=== PATIENT | female | born 1945 | race Caucasian/White ===

== ENCOUNTER 2018-01-10 12:34 | Observation (INO) | payer MEDICARE ==
--- NOTE | 2018-01-10 13:09 | Emergency Department Record ---
History of Present Illness - General Chief complaint: Swelling of legs Stated complaint: SWELLING /REDNESS IN BOTH LEGS Time Seen by Provider: 01/10/18 12:53 Source: Patient Mode of Arrival: Ambulatory Limitations: No limitations - History of Present Illness Initial comments: The patient is here due to bilateral leg swelling and redness for 2 weeks. She did take a short course of lasix which did improve her swelling mildly but the legs are still red. She denies any pain, fever, chills, or any change of her chronic SOB. There has been no CP, back pain, or fevers. The patient does have an appointment with her PCP in 2 days. MD Complaint: Extremity swelling Onset/Timin -: Week(s) Location: Bilateral, Lower Leg History of Same: No Radiation: None Improves with: Medication Worsens with: Nothing Associated Symptoms: Denies other symptoms - Related Data Home Medications Medication Instructions Recorded Confirmed Last Taken Magnesium Oxide [Magnesium] 400 mg PO 01/10/18 01/09/18 Montelukast Sodium [Singulair] 10 mg PO 01/10/18 01/10/18 Previous Rx's Medication Instructions Recorded Fluticasone/Salmeterol [Advair 1 puff IH BID #1 disk.w.dev 02/16/15 500-50 Diskus] Hydrocodone/Acetaminophen [[place] 1 each PO QID #20 tablet 01/14/16 5-325 Tablet] Allergies Allergy/AdvReac Type Severity Reaction Status Date / Time bupropion HCl Allergy JOHNSTON-GLENYS Verified 01/10/18 13:00 [From Wellbutrin] SYNDROME fexofenadine HCl Allergy HYPERSENSIT Verified 01/10/18 13:00 [From Rhiannon] IVITY lisinopril Allergy HYPERSENSIT Verified 01/10/18 13:00 IVITY losartan potassium Allergy SWELLING Verified 01/10/18 13:00 [From Cozaar] (GENERAL) nicotine Allergy RASH Verified 01/10/18 13:00 Sulfa (Sulfonamide Allergy DIFFICULTY Verified 01/10/18 13:00 Antibiotics) BREATHING Travel Screening - Travel/Exposure Within Last 30 Days Have you traveled within the last 30 days?: No - Travel/Exposure Within Last Year Have you traveled outside the [place] in the last year?: No - Additonal Travel Details Have you been exposed to anyone with a communicable illness?: No - Travel Symptoms Symptom Screening: None Review of Systems Constitutional: Denies: Chills, Fever Eyes: Denies: Eye discharge ENT: Denies: Congestion Respiratory: Reports: Dyspnea (chronic.). Denies: Cough Cardiovascular: Denies: Arrhythmia, Chest pain, Dyspnea on exertion Endocrine: Reports: Fatigue Gastrointestinal: Denies: Abdominal pain Genitourinary: Denies: Dysuria Musculoskeletal: Denies: Back pain Past Medical History - SOCIAL HISTORY Smoking Status: Light tobacco smoker (<10/day) Alcohol Use: None Drug Use: None - RESPIRATORY Hx Respiratory Disorders: Yes Hx Bronchitis: Yes Hx COPD: Yes Hx Dyspnea: Yes Hx Pneumonia: Yes - CARDIOVASCULAR Hx Cardio Disorders: Yes Hx Cardiac Cath: Yes (no heart stents) Hx Heart Attack: Yes (2012) Hx Hypertension: Yes Comment:: AAA with stent type repair - NEURO Hx Neuro Disorders: No - GI Hx GI Disorders: No - Hx Genitourinary Disorders: Yes Hx Bladder Problem: Yes Comment:: copious amts of urine x 6 days, now can't pee. - ENDOCRINE Hx Endocrine Disorders: Yes Hx Diabetes: Yes Hx Thyroid Disease: Yes Comment:: subthyroidectomy. Parathyroid working - MUSCULOSKELETAL Hx Musculoskeletal Disorders: Yes Hx Arthritis: Yes - PSYCH Hx Psych Problems: No - HEMATOLOGY/ONCOLOGY Hx Hematology/Oncology Disorders: Yes Hx Bruising: Yes Comment:: psoriasis Family Medical History Any Significant Family History?: No Hx Diabetes: Father, Mother Hx Heart Disease: Father, Mother Hx HTN: Mother Hx Stroke: Father Physical Exam - General General Appearance: Alert, Oriented x3, Cooperative, No acute distress - Head Head exam: Atraumatic, Normocephalic - Eye Eye exam: Normal appearance, PERRL - Neck Neck exam: Normal inspection, Full ROM. negative: Tenderness - Respiratory Respiratory exam: Rhonchi. negative: Normal lung sounds bilaterally, Rales, Respiratory distress, Stridor, Wheezes - Cardiovascular Cardiovascular Exam: Regular rate, Normal rhythm, Normal heart sounds - GI/Abdominal GI/Abdominal exam: Soft, Normal bowel sounds. negative: Tenderness - Extremities Extremities exam: Full ROM, Normal capillary refill, Pedal edema (The legs are swollen bilateral to about 2+ of edema. There is anterior erythema L>R. There is no warmth or tenderness.). negative: Normal inspection, Calf tenderness, Joint swelling, Tenderness - Neurological Neurological exam: Alert. negative: Motor sensory deficit Course Vital Signs 01/10/18 12:38 Temperature 98.4 F Pulse Rate 103 H Respiratory 18 Rate Blood Pressure 136/59 Pulse Ox 91 L - Reevaluation(s) Reevaluation #1: The patient is doing well and denies any new pain or any new issues. She is now urinating for the first time since she received the Lasix. I did discuss the issues with her and the need to keep her in the hospital overnight for observation and diuresis. The patient understands and does agree to the admission. I then did discuss the case with Jailene (VIDEO GAME ENGINEER) and she does accept the admission for Dr. Ruiz. 01/10/18 14:50 Medical Decision Making - Data Complexity MDM Data: Labs Ordered and/or Reviewed, X-Ray Ordered and/or Reviewed, EKG Ordered and/or Reviewed - Lab Data Result diagrams: 01/10/18 13:13 01/10/18 13:13 - EKG Data -: EKG Interpreted by Me EKG: No Acute Changes (Neg for ischemic changes.) - Radiology Data Radiology results: Report reviewed (CXR: Increased interstitial markings at the bases, COPD.) Disposition Disposition: Admit Clinical Impression: Cellulitis Qualifiers: Site of cellulitis: unspecified site Qualified Code(s): L03.90 - Cellulitis, unspecified CHF (congestive heart failure) Qualifiers: Heart failure type: unspecified Heart failure chronicity: unspecified Qualified Code(s): I50.9 - Heart failure, unspecified Disposition: Still a Patient at [facility] Decision to Admit: Admit from ER Decision to Admit Date: 01/10/18 Decision to Admit Time: 15:18 Accepting Physician: oJseph. Time Discussed w/Accepting Physician: 15:18 Condition: (2) Stable Instructions: Leg Edema (ED) Forms: Patient Portal Access Time of Disposition: 15:18 Quality - Quality Measures Quality Measures: N/A - Blood Pressure Screening View Details: Yes Does Patient Have Any of the Following: Active Dx of HTN Blood Pressure Classification: Pre-Hypertensive BP Reading Systolic Measurement: 136 Diastolic Measurement: 59 Screening for High Blood Pressure: Patient Exclusion, Hx of HTN [[id number]]
[2018-01-10 13:21] LABS: HEMOGLOBIN 12.6 gm/dl (11.6-16.0); MEAN CELL VOLUME 85.6 fl (81-97); MEAN CORPUSCULAR HGB CONC 26.8 g/dl (32-36); MEAN PLATELET VOLUME 10.5 fl (7.4-10.4); PLATELET COUNT 228 K/uL (130-400); RED BLOOD COUNT 5.49 M/uL (3.80-5.40); RED CELL DISTRIBUTION WIDTH 18.7 % (11.5-14.5); WHITE BLOOD COUNT W/O DIFF 5.9 K/uL (4.2-12.2)
[2018-01-10 13:23] LABS: MEAN CORPUSCULAR HEMOGLOBIN 22.9 pg (27-33)
[2018-01-10 13:31] LABS: CREATININE 1.2 mg/dL (0.5-0.9)
[2018-01-10 13:32] LABS: BILIRUBIN,TOTAL 0.2 mg/dL (0.2-1.0); TOTAL PROTEIN 6.2 g/dL (6.6-8.7)
[2018-01-10 13:33] LABS: PLATELET ESTIMATE NORMAL (NORMAL)
[2018-01-10 13:37] LABS: ALB/GLOB RATIO 1.6 (1.1-1.8); ALBUMIN 3.8 g/dL (4.0-5.0)
[2018-01-10] MEDS ORDERED: CEFTRIAXONE SODIUM 1 GM in 0.9 % SODIUM CHLORIDE 100ML 100 ML IVPB ONE (13:48)
[2018-01-10] MEDS ORDERED: FUROSEMIDE IV 40MG/4ML VIAL IVP ONE (13:48)
[2018-01-10 15:08] LABS: CKMB 4.2 ng/mL (<3.77)
[2018-01-10] MEDS ORDERED: ALBUTEROL HFA 8 GM INHALER INH PRN (17:21)
[2018-01-10] MEDS: CEFTRIAXONE SODIUM 1 GM in 0.9 % SODIUM CHLORIDE 100ML 100 ML IVPB SCH (17:58)
[2018-01-10] MEDS: FUROSEMIDE IV 20MG/2ML VIAL IVP SCH (17:59)
[2018-01-10] MEDS ORDERED: HYDROCODONE/APAP 5/325MG TABLET PO SCH (18:00)
[2018-01-10 18:37] LABS: URINE APPEARANCE CLEAR; URINE BILIRUBIN NEGATIVE (NEGATIVE); URINE BLOOD NEGATIVE (NEGATIVE); URINE COLOR YELLOW; URINE GLUCOSE (UA) NEGATIVE (NEGATIVE); URINE KETONE NEGATIVE (NEGATIVE); URINE LEUKOCYTE ESTERASE NEGATIVE (NEGATIVE); URINE NITRITE NEGATIVE (NEGATIVE); URINE PROTEIN NEGATIVE (NEGATIVE); URINE UROBILINOGEN 0.2 E.U./dL (0.20 - 1.00)
[2018-01-10] MEDS ORDERED: HYDROCODONE/APAP 5/325MG TABLET PO PRN (18:40)
[2018-01-10] MEDS: ADVAIR PUFF SCH (21:55)
[2018-01-10] MEDS ORDERED: FLUTICASONE/SALMETEROL 500/50 DISKUS INH SCH (22:00)
[2018-01-10] MEDS ORDERED: MONTELUKAST SODIUM 10MG TABLET PO SCH (22:00)
[2018-01-10] MEDS ORDERED: LEVEMIR FLEXTOUCH 100 UNIT/ML INSULIN PEN SQ SCH ×2 (22:00→23:30)
[2018-01-10] MEDS ORDERED: MAGNESIUM OXIDE 400 MG TABLET PO SCH (22:00)
[2018-01-10] MEDS ORDERED: CARVEDILOL 12.5 MG TABLET PO SCH (22:00)
[2018-01-10] MEDS ORDERED: CLONIDINE HCL 0.1 MG TABLET PO SCH (22:00)
[2018-01-10] MEDS ORDERED: SPIRIVA 18 MCG PUFF SCH (22:00)
[2018-01-10] MEDS ORDERED: TIOTROPIUM BROMIDE IH SCH (22:00)
[2018-01-10] MEDS ORDERED: AMLODIPINE BESYLATE 5MG TAB PO SCH (22:00)
[2018-01-10] MEDS ORDERED: ASPIRIN 81 MG TABEC PO SCH (23:00)
--- NOTE | 2018-01-11 00:50 | RADIOLOGY REPORT ---
EXAM: CHEST 2 VIEWS HISTORY: PATIENT HAS BILATERAL LOWER LEG SWELLING AND COPD WITH SHORTNESS OF BREATH. TECHNIQUE: Two views of the chest are provided along with a comparison study dated 02/16/2015. FINDINGS: The cardiomediastinal silhouette is within normal limits for size and contour. Mar appear unremarkable. COPD changes are identified bilaterally. Calcified granuloma within the right upper lobe is unchanged with respect to the prior examination. Blunting of bilateral posterior costophrenic angles suggestive of small pleural effusions. Pulmonary vascular congestion is noted. Possible interstitial infiltrates may be present at the lung bases. No pneumothorax is noted. IMPRESSION: COPD CHANGES ARE IDENTIFIED. SMALL PLEURAL EFFUSIONS ARE SUSPECTED. INTERSTITIAL PROMINENCE IS NOTED, PREDOMINATELY AT THE LUNG BASES, WHICH MAY REPRESENT PNEUMONIA. FOLLOW-UP PA AND LATERAL VIEWS OF THE CHEST CAN BE OBTAINED UNTIL RESOLUTION OF FINDINGS. JOB NUMBER: [id number] MTDD
[2018-01-11] MEDS: CEFTRIAXONE SODIUM 1 GM in 0.9 % SODIUM CHLORIDE 100ML 100 ML IVPB SCH (06:01)
[2018-01-11] MEDS: FUROSEMIDE IV 20MG/2ML VIAL IVP SCH ×4 (06:30→15:22)
[2018-01-11 06:37] LABS: CREATININE 1.2 mg/dL (0.5-0.9)
[2018-01-11] MEDS: ALBUTEROL SULFATE (0.083%) 2.5 MG/3 ML NEB INH PRN ×2 (08:08→18:06)
[2018-01-11] MEDS: ADVAIR PUFF SCH (09:30)
[2018-01-11] MEDS ORDERED: ATORVASTATIN 20 MG TABLET PO SCH (10:00)
[2018-01-11] MEDS ORDERED: ASPIRIN 81 MG TABEC PO SCH (10:00)
[2018-01-11] MEDS ORDERED: LEVEMIR FLEXTOUCH 100 UNIT/ML INSULIN PEN SQ SCH (10:00)
[2018-01-11] MEDS ORDERED: AMLODIPINE BESYLATE 5MG TAB PO SCH ×2 (10:00)
[2018-01-11] MEDS ORDERED: TIOTROPIUM BROMIDE IH SCH (10:00)
[2018-01-11] MEDS ORDERED: MONTELUKAST SODIUM 10MG TABLET PO SCH (10:00)
[2018-01-11] MEDS ORDERED: RAMIPRIL 10 MG PO SCH (10:00)
[2018-01-11] MEDS ORDERED: CARVEDILOL 3.125 MG TABLET PO SCH (11:15)
--- NOTE | 2018-01-11 11:46 | History & Physical ---
History of Present Illness - Date of Service Date of Service for History & Physical: 01/11/18 - History of Present Illness Admitting Diagnosis: 1. CHF. 2. Leg Cellulitis History of Present Illness: 72 yo female presents for CHF exacerbation and rosalva leg edema. PMH CHF, COPD, DM , HTN Pt reports sudden onset 2 weeks ago of BLE edema and redness. Denies increased salt in diet or increased fluid intact but has not been taking her Coreg for several months. Reports her BP is 90/70 on her meds and that is not acceptable to her. Denies symptoms at that BP but is anxious about the numbers. ER- pt denies fever, chills, pain with BLE edema and redness. Temp 98.4F, HR 103, RR 18, BP 136/59, 92% 3L (home O2). WBC 5.9, Hgb 12.6, Hct 47, Plt 228 NA 146, K 4.2, Cl 100, CO2 34, BUN 21, Creatinine 1.2, GFR 47, glucose 263, LFTs normal Trop 0.025, CK-MB 4.2, CK 132, CRP 0.43, BNP 3568 Repeat trop 0.028 (2200), 0.028 (0600), BNP 3108, CKMB 3 01/11/18 Pt in mild resp distress and very anxious. Denies CP or any CP during edema issue. Pt has stopped several of her BP/cardiac meds on her own accord because she has concerns about asymptomatic BP 90/70 while on meds. Pt has COPD, continues to smoke and lives at home with a son. Pt is on home O2 3Lnc. Pt updated on abnormal labs. Pt is upset about admission and wants to go home. States bed is uncomfortable and she is not able to complete her regular home tasks of cooking, cleaning and doing the dishes. Pt again updated that BNP elevated and suspected CHF exacerbation with slightly elevated cardiac enzymes. Pt encouraged to continue inpt with IV lasix, K supp and see cardiology tomorrow with likely BLE US and ECHO. Pt states she would rather see her hay buckler, this provider req she stay until the AM to have care coordinators make appointments before d/c. Pt then states she is unable to physically get to her hay buckler office. Pt is resistant to most care. Pt was admitted with cellulitis DX but no WBC count, no fever and no leg pain, no injury. Suspecting circulatory insufficiency r/t redness and pt concurs she does not feel as if she has cellulitis. pt is retired nurse. [facility] contacted for possible transfer, Dr Lackey paged about possible transfer. Awaiting call back. UPDATE: Dr Lackey will accept admission for Dr Figueroa. Awaiting bed assignment. PCP:Scot Specialist: Guzman Figueroa (thoracic) Travel Screening - Travel/Exposure Within Last 30 Days Have you traveled within the last 30 days?: No - Travel/Exposure Within Last Year Have you traveled outside the [place] in the last year?: No - Additonal Travel Details Have you been exposed to anyone with a communicable illness?: No - Travel Symptoms Symptom Screening: None Review of Systems Constitutional: Denies: Chills, Fever Eyes: Denies: Eye discharge ENT: Denies: Congestion Respiratory: Reports: Dyspnea (chronic.). Denies: Cough Cardiovascular: Denies: Arrhythmia, Chest pain, Dyspnea on exertion Endocrine: Reports: Fatigue Gastrointestinal: Denies: Abdominal pain Genitourinary: Denies: Dysuria Musculoskeletal: Denies: Back pain Past Medical History - SOCIAL HISTORY Smoking Status: Light tobacco smoker (<10/day) Alcohol Use: None Drug Use: None - RESPIRATORY Hx Respiratory Disorders: Yes Hx Bronchitis: Yes Hx COPD: Yes Hx Dyspnea: Yes Hx Pneumonia: Yes - CARDIOVASCULAR Hx Cardio Disorders: Yes Hx Cardiac Cath: Yes (no heart stents) Hx Heart Attack: Yes (2012) Hx Hypertension: Yes Comment:: AAA with stent type repair - NEURO Hx Neuro Disorders: No - GI Hx GI Disorders: No - Hx Genitourinary Disorders: Yes Hx Bladder Problem: Yes Comment:: copious amts of urine x 6 days, now can't pee. - ENDOCRINE Hx Endocrine Disorders: Yes Hx Diabetes: Yes Hx Thyroid Disease: Yes Comment:: subthyroidectomy. Parathyroid working - MUSCULOSKELETAL Hx Musculoskeletal Disorders: Yes Hx Arthritis: Yes - PSYCH Hx Psych Problems: No - HEMATOLOGY/ONCOLOGY Hx Hematology/Oncology Disorders: Yes Hx Bruising: Yes Comment:: psoriasis Family Medical History Any Significant Family History?: No Hx Diabetes: Father, Mother Hx Heart Disease: Father, Mother Hx HTN: Mother Hx Stroke: Father H&P Meds/Allergies - Allergies Allergies: Allergies Allergy/AdvReac Type Severity Reaction Status Date / Time bupropion HCl Allergy JOHNSTON-GLENYS Verified 01/10/18 13:00 [From Wellbutrin] SYNDROME fexofenadine HCl Allergy HYPERSENSIT Verified 01/10/18 13:00 [From Rhiannon] IVITY lisinopril Allergy HYPERSENSIT Verified 01/10/18 13:00 IVITY losartan potassium Allergy SWELLING Verified 01/10/18 13:00 [From Cozaar] (GENERAL) nicotine Allergy RASH Verified 01/10/18 13:00 Sulfa (Sulfonamide Allergy DIFFICULTY Verified 01/10/18 13:00 Antibiotics) BREATHING - Home Medications Home Medications Medication Instructions Recorded Confirmed Last Taken Magnesium Oxide [Magnesium] 400 mg PO 01/10/18 01/09/18 Montelukast Sodium [Singulair] 10 mg PO 01/10/18 01/10/18 Albuterol Sulfate 0.083% [Neb] 3 ml NEB .EVERY 4-6 HOURS PRN 01/11/18 01/11/18 01/08/18 Previous Rx's Medication Instructions Recorded Fluticasone/Salmeterol [Advair 1 puff IH BID #1 disk.w.dev 02/16/15 500-50 Diskus] Hydrocodone/Acetaminophen [[place] 1 each PO QID #20 tablet 01/14/16 5-325 Tablet] - Active Medications Active Medications: Current Medications Hydrocodone Bitart/Acetaminophen ([place] 5mg/325mg) 1 each PO QID PRN PRN Reason: Pain - Moderate (5-7) Albuterol Sulfate (Ventolin Hfa) 1 - 2 puff INH .EVERY 4-6 HOURS PRN PRN Reason: DIFFICULTY IN BREATHING Last Admin: 01/11/18 05:35 Dose: 2 puff Albuterol Sulfate () 2.5 mg INH RESP.Q4H.WA PRN PRN Reason: DIFFICULTY IN BREATHING Last Admin: 01/11/18 08:08 Dose: 2.5 mg Amlodipine Besylate (Norvasc) 5 mg PO QAM PAT[facility]ICA Aspirin (Ecotrin (Ec)) 81 mg PO QHS [facility] Last Admin: 01/10/18 23:55 Dose: Not Given Atorvastatin Calcium (Lipitor) 80 mg PO DAILY PATRICA Furosemide (Lasix Iv) 20 mg IVP BIDDIUR [facility] Last Admin: 01/11/18 06:30 Dose: 20 mg Ceftriaxone Sodium 1 gm/ (Sodium Chloride) 100 mls @ 200 mls/hr IVPB Q12H [facility] Stop: 01/15/18 17:22 Last Infusion: 01/11/18 06:30 Dose: Infused Insulin Detemir (Levemir Flextouch) [facility] [place] Detemir (Levemir Flextouch) 10 unit SQ QHS [facility] Last Admin: 01/10/18 23:56 Dose: Not Given Magnesium Oxide (Mag Ox) 400 mg PO QHS [facility] Last Admin: 01/10/18 22:26 Dose: 400 mg Montelukast Sodium (Singulair) 10 mg PO QAM [facility] Patient Own Med: (Advair 500/50) 1 each PUFF BID [facility] Last Admin: 01/11/18 09:30 Dose: 1 each Patient Own Med: (Spiriva 18 Mcg Caps) 1 each PUFF QHS [facility] Last Admin: 01/10/18 21:55 Dose: 1 each Physical Exam - Vital Signs Vital Signs: Vital Signs - Last 24 Hrs Temp Pulse Pulse Pulse Resp BP BP 01/11/18 09:31 01/11/18 08:21 88 18 01/11/18 08:05 92 H 01/11/18 05:35 90 20 01/11/18 04:00 98.2 F 103 H 20 01/10/18 21:55 95 H 18 01/10/18 19:59 97.6 F 105 H 20 01/10/18 17:05 18 01/10/18 16:55 99.1 F 97 H 18 150/82 01/10/18 16:44 98.0 F 88 18 143/78 01/10/18 15:34 91 H 16 155/85 01/10/18 12:38 98.4 F 103 H 18 136/59 BP Pulse Ox 01/11/18 09:31 88 L 01/11/18 08:21 89 L 01/11/18 08:05 84 L 01/11/18 05:35 88 L 01/11/18 04:00 124/62 88 L 01/10/18 21:55 96 01/10/18 19:59 157/80 80 L 01/10/18 17:05 01/10/18 16:55 97 01/10/18 16:44 94 L 01/10/18 15:34 92 L 01/10/18 12:38 91 L - General General Appearance: Alert, Oriented x3, Cooperative, Mild distress Limitations: No limitations - Head Head exam: Atraumatic, Normocephalic - Eye Eye exam: Normal appearance, PERRL - ENT ENT exam: Mucous membranes dry Ear exam: Normal external inspection Mouth exam: Normal external inspection - Neck Neck exam: Normal inspection, Full ROM. negative: Tenderness - Respiratory Respiratory exam: Respiratory distress (mild), Rhonchi, Wheezes, Other ( crackles ROSALVA bases). negative: Normal lung sounds bilaterally, Rales, Stridor - Cardiovascular Cardiovascular Exam: Regular rate, Normal rhythm, Normal heart sounds Peripheral Pulses: 2+: Radial (R), Radial (L), Dorsalis Pedis (R), Dorsalis Pedis (L) - GI/Abdominal GI/Abdominal exam: Soft, Normal bowel sounds. negative: Tenderness - Rectal Rectal exam: Deferred - exam: Deferred - Extremities Extremities exam: Full ROM, Normal capillary refill, Pedal edema (The legs are swollen bilateral to about 2+ of edema. There is anterior erythema L>R. There is no warmth or tenderness.). negative: Normal inspection, Calf tenderness, Joint swelling, Tenderness - Neurological Neurological exam: Alert. negative: Motor sensory deficit - Psychiatric Psychiatric exam: Anxious Results - Labs Result Diagrams: 01/10/18 13:13 01/11/18 06:00 Labs Last 24 Hours: Laboratory Results - last 24 hr 01/10/18 01/10/18 01/10/18 13:13 13:13 13:13 WBC 5.9 RBC 5.49 H Hgb 12.6 Hct 47.0 MCV 85.6 MCH 22.9 L MCHC 26.8 L RDW 18.7 H Plt Count 228 MPV 10.5 H Neutrophils % 89.0 H Band Neutrophils % 2.0 Eosinophils % Not Reportable Basophils % Not Reportable Lymphocytes 5.0 L Monocytes 4.0 Platelet Estimate Normal RBC Morphology Normal Sodium 146 H Potassium 4.2 Chloride 100 Carbon Dioxide 34.0 H Anion Gap 12.0 BUN 21 Creatinine 1.2 H Estimated GFR 47 POC Glucose Random Glucose 263 H Calcium 8.9 Total Bilirubin 0.20 AST 18 ALT 12 Alkaline Phosphatase 79 Creatine Kinase CK-MB (CK-2) Troponin T C-Reactive Protein 0.43 NT-Pro-B Natriuret Pep Total Protein 6.2 L Albumin 3.8 L Globulin 2.4 Albumin/Globulin Ratio 1.6 Urine Color Urine Appearance Urine pH Ur Specific [place] Urine Protein Urine Glucose (UA) Urine Ketones Urine Blood Urine Nitrite Urine Bilirubin Urine Urobilinogen Ur Leukocyte Esterase 01/10/18 01/10/18 01/10/18 13:13 13:13 18:30 WBC RBC Hgb Hct MCV MCH MCHC RDW Plt Count MPV Neutrophils % Band Neutrophils % Eosinophils % Basophils % Lymphocytes Monocytes Platelet Estimate RBC Morphology Sodium Potassium Chloride Carbon Dioxide Anion Gap BUN Creatinine Estimated GFR POC Glucose Random Glucose Calcium Total Bilirubin AST ALT Alkaline Phosphatase Creatine Kinase 132 CK-MB (CK-2) 4.2 H Troponin T 0.025 H C-Reactive Protein NT-Pro-B Natriuret Pep 3568.00 H Total Protein Albumin Globulin Albumin/Globulin Ratio Urine Color Yellow Urine Appearance Clear Urine pH 5.5 Ur Specific [place] 1.010 Urine Protein Negative Urine Glucose (UA) Negative Urine Ketones Negative Urine Blood Negative Urine Nitrite Negative Urine Bilirubin Negative Urine Urobilinogen 0.2 Ur Leukocyte Esterase Negative 01/10/18 01/10/18 01/10/18 22:00 22:00 22:00 WBC RBC Hgb Hct MCV MCH MCHC RDW Plt Count MPV Neutrophils % Band Neutrophils % Eosinophils % Basophils % Lymphocytes Monocytes Platelet Estimate RBC Morphology Sodium Potassium Chloride Carbon Dioxide Anion Gap BUN Creatinine Estimated GFR POC Glucose 141 H Random Glucose Calcium Total Bilirubin AST ALT Alkaline Phosphatase Creatine Kinase CK-MB (CK-2) 4.2 H Troponin T 0.028 H C-Reactive Protein NT-Pro-B Natriuret Pep Total Protein Albumin Globulin Albumin/Globulin Ratio Urine Color Urine Appearance Urine pH Ur Specific [place] Urine Protein Urine Glucose (UA) Urine Ketones Urine Blood Urine Nitrite Urine Bilirubin Urine Urobilinogen Ur Leukocyte Esterase 01/11/18 01/11/18 01/11/18 06:00 06:00 06:00 WBC RBC Hgb Hct MCV MCH MCHC RDW Plt Count MPV Neutrophils % Band Neutrophils % Eosinophils % Basophils % Lymphocytes Monocytes Platelet Estimate RBC Morphology Sodium Cancelled Potassium Cancelled Chloride Cancelled Carbon Dioxide Cancelled Anion Gap Cancelled BUN Cancelled Creatinine Cancelled Estimated GFR Cancelled POC Glucose Random Glucose Cancelled Calcium Cancelled Total Bilirubin AST ALT Alkaline Phosphatase Creatine Kinase CK-MB (CK-2) Cancelled Troponin T C-Reactive Protein NT-Pro-B Natriuret Pep Cancelled Total Protein Albumin Globulin Albumin/Globulin Ratio Urine Color Urine Appearance Urine pH Ur Specific [place] Urine Protein Urine Glucose (UA) Urine Ketones Urine Blood Urine Nitrite Urine Bilirubin Urine Urobilinogen Ur Leukocyte Esterase 01/11/18 01/11/18 06:00 07:46 WBC RBC Hgb Hct MCV MCH MCHC RDW Plt Count MPV Neutrophils % Band Neutrophils % Eosinophils % Basophils % Lymphocytes Monocytes Platelet Estimate RBC Morphology Sodium 144 Potassium 4.3 Chloride 98 Carbon Dioxide 34.0 H Anion Gap 12.0 BUN 19 Creatinine 1.2 H Estimated GFR 47 POC Glucose 158 H Random Glucose 158 H Calcium 8.7 L Total Bilirubin AST ALT Alkaline Phosphatase Creatine Kinase CK-MB (CK-2) 3.0 Troponin T 0.028 H C-Reactive Protein NT-Pro-B Natriuret Pep 3108.00 H Total Protein Albumin Globulin Albumin/Globulin Ratio Urine Color Urine Appearance Urine pH Ur Specific [place] Urine Protein Urine Glucose (UA) Urine Ketones Urine Blood Urine Nitrite Urine Bilirubin Urine Urobilinogen Ur Leukocyte Esterase - Imaging and Cardiology Chest x-ray Status: Report reviewed VTE H&P Assessment - Risk for VTE Risk for VTE: Yes Risk Level: High Risk Assessment Date: 01/11/18 Risk Assessment Time: 11:49 VTE Orders Placed or Will Be Placed: Yes Plan - Detailed Diagnosis and Plan (1) CHF (congestive heart failure) Current Visit: Yes Status: Acute Qualifiers: Heart failure type: unspecified Heart failure chronicity: unspecified Qualified Code(s): I50.9 - Heart failure, unspecified Base Code: I50.9 - HEART FAILURE, UNSPECIFIED Comment: 01/11/18 -pt has elevated BNP, indeterminent cardiac enzymes -BLE +2, crackles to rosalva lung bases, short of breath requiring increaed O2 demand from 3L nc at home -Drops to 86% 4l with ambulation -transfer to [facility] step down (2) DVT prophylaxis Current Visit: Yes Status: Acute Base Code: [id number] - Comment: 01/11/18 -lovenox 40mg SQ
--- NOTE | 2018-01-11 12:34 | Discharge Summary ---
Providers Discharge Summary Date: 01/11/18 Date of admission: 01/10/18 16:44 Expected Date of Discharge: 01/11/18 Attending physician: TWAN SR Primary care physician: Lorraine Ellison Consults: [facility] cardiology Physical Exam - Vital Signs Vital Signs: Vital Signs - Last 24 Hrs Temp Pulse Pulse Pulse Resp BP BP 01/11/18 11:23 98.2 F 89 18 01/11/18 09:31 01/11/18 08:21 88 18 01/11/18 08:05 92 H 01/11/18 05:35 90 20 01/11/18 04:00 98.2 F 103 H 20 01/10/18 21:55 95 H 18 01/10/18 19:59 97.6 F 105 H 20 01/10/18 17:05 18 01/10/18 16:55 99.1 F 97 H 18 150/82 01/10/18 16:44 98.0 F 88 18 143/78 01/10/18 15:34 91 H 16 155/85 01/10/18 12:38 98.4 F 103 H 18 136/59 BP Pulse Ox 01/11/18 11:23 118/59 86 L 01/11/18 09:31 88 L 01/11/18 08:21 89 L 01/11/18 08:05 84 L 01/11/18 05:35 88 L 01/11/18 04:00 124/62 88 L 01/10/18 21:55 96 01/10/18 19:59 157/80 80 L 01/10/18 17:05 01/10/18 16:55 97 01/10/18 16:44 94 L 01/10/18 15:34 92 L 01/10/18 12:38 91 L - General General Appearance: Alert, Oriented x3, Cooperative, Mild distress Limitations: No limitations - Head Head exam: Atraumatic, Normocephalic - Eye Eye exam: Normal appearance, PERRL - ENT ENT exam: Mucous membranes dry Ear exam: Normal external inspection Mouth exam: Normal external inspection - Neck Neck exam: Normal inspection, Full ROM. negative: Tenderness - Respiratory Respiratory exam: Respiratory distress (mild), Rhonchi, Wheezes, Other ( crackles ROSALVA bases). negative: Normal lung sounds bilaterally, Rales, Stridor - Cardiovascular Cardiovascular Exam: Regular rate, Normal rhythm, Normal heart sounds Peripheral Pulses: 2+: Radial (R), Radial (L), Dorsalis Pedis (R), Dorsalis Pedis (L) - GI/Abdominal GI/Abdominal exam: Soft, Normal bowel sounds. negative: Tenderness - Rectal Rectal exam: Deferred - exam: Deferred - Extremities Extremities exam: Full ROM, Normal capillary refill, Pedal edema (The legs are swollen bilateral to about 2+ of edema. There is anterior erythema L>R. There is no warmth or tenderness.), Other (rosalva redness, appears to be vensous status issues, blanchable, not warm, no pain, no drainage x2 weeks). negative: Normal inspection, Calf tenderness, Joint swelling, Tenderness - Neurological Neurological exam: Alert. negative: Motor sensory deficit - Psychiatric Psychiatric exam: Anxious Hospitalization - Hospitalization Admission Diagnosis: 1. CHF. 2. Leg Cellulitis - Problem List/Discharge Diagnosis (1) CHF (congestive heart failure) Status: Acute Discharge Diagnosis: Heart failure type: unspecified Heart failure chronicity: unspecified Qualified Code(s): I50.9 - Heart failure, unspecified Base Code: I50.9 - HEART FAILURE, UNSPECIFIED Comment: 01/11/18 -pt has elevated BNP, indeterminent cardiac enzymes -BLE +2, crackles to rosalva lung bases, short of breath requiring increaed O2 demand from 3L nc at home -Drops to 86% 4l with ambulation -transfer to [facility] down (2) DVT prophylaxis Status: Acute Base Code: [id number] - Comment: 01/11/18 -lovenox 40mg SQ - Hospitalization Course Disposition: Acute Care Hospital Transfer Procedures: Imaging and X-Rays 01/10/18 13:04 CHEST 2 VIEWS [RAD] Stat Cardiology Procedures 01/10/18 14:48 EKG NOW 01/10/18 17:21 Mill Manager .Continuous Abnormal Labs: Abnormal Lab Results 01/10/18 01/10/18 01/10/18 Range/Units 13:13 13:13 13:13 RBC 5.49 H (3.80-5.40) M/uL MCH 22.9 L (27-33) pg MCHC 26.8 L (32-36) g/dl RDW 18.7 H (11.5-14.5) % MPV 10.5 H (7.4-10.4) fl Neutrophils % 89.0 H (47-80) % Lymphocytes 5.0 L (16-45) % Sodium 146 H (136-145) mmol/L Carbon Dioxide 34.0 H (22-29) mmol/L Creatinine 1.2 H (0.5-0.9) mg/dL POC Glucose (70-110) mg/dL Random Glucose 263 H (74-109) mg/dL Calcium (8.8-10.2) mg/dL CK-MB (CK-2) (<3.77) ng/mL Troponin T (0-0.010) ng/mL NT-Pro-B Natriuret Pep 3568.00 H (<125) pg/mL Total Protein 6.2 L (6.6-8.7) g/dL Albumin 3.8 L (4.0-5.0) g/dL 01/10/18 01/10/18 01/10/18 Range/Units 13:13 22:00 22:00 RBC (3.80-5.40) M/uL MCH (27-33) pg MCHC (32-36) g/dl RDW (11.5-14.5) % MPV (7.4-10.4) fl Neutrophils % (47-80) % Lymphocytes (16-45) % Sodium (136-145) mmol/L Carbon Dioxide (22-29) mmol/L Creatinine (0.5-0.9) mg/dL POC Glucose (70-110) mg/dL Random Glucose (74-109) mg/dL Calcium (8.8-10.2) mg/dL CK-MB (CK-2) 4.2 H 4.2 H (<3.77) ng/mL Troponin T 0.025 H 0.028 H (0-0.010) ng/mL NT-Pro-B Natriuret Pep (<125) pg/mL Total Protein (6.6-8.7) g/dL Albumin (4.0-5.0) g/dL 01/10/18 01/11/18 01/11/18 Range/Units 22:00 06:00 07:46 RBC (3.80-5.40) M/uL MCH (27-33) pg MCHC (32-36) g/dl RDW (11.5-14.5) % MPV (7.4-10.4) fl Neutrophils % (47-80) % Lymphocytes (16-45) % Sodium (136-145) mmol/L Carbon Dioxide 34.0 H (22-29) mmol/L Creatinine 1.2 H (0.5-0.9) mg/dL POC Glucose 141 H 158 H (70-110) mg/dL Random Glucose 158 H (74-109) mg/dL Calcium 8.7 L (8.8-10.2) mg/dL CK-MB (CK-2) (<3.77) ng/mL Troponin T 0.028 H (0-0.010) ng/mL NT-Pro-B Natriuret Pep 3108.00 H (<125) pg/mL Total Protein (6.6-8.7) g/dL Albumin (4.0-5.0) g/dL Condition at Discharge: (2) Stable Discharge Medications - Discharge Medications Home Medications: Ambulatory Orders Albuterol Sulfate [Ventolin Hfa] 1 - 2 puff IH .EVERY 4-6 HOURS PRN 02/13/15 [ Last Taken 01/10/18] Carvedilol [Coreg] 12.5 mg PO BID 02/13/15 [Last Taken 1 Day Ago ~02/12/15] Insulin Detemir [Levemir] 20 unit SQ BID 02/13/15 [Last Taken 01/09/18] Ramipril [Altace] 10 mg PO DAILY 02/13/15 [Last Taken 1 Day Ago ~02/12/15] Rosuvastatin Calcium [Crestor] 20 mg PO DAILY 02/13/15 [Last Taken 01/09/18] Tiotropium [place] [Spiriva] 1 cap IH DAILY 02/13/15 [Last Taken 01/09/18] Fluticasone/Salmeterol [Advair 500-50 Diskus] 1 puff IH BID #1 disk.w.dev [Last Taken 01/09/18] Aspirin [Aspirin EC] 81 mg PO DAILY 01/14/16 [Last Taken 01/09/18] Clonidine HCl [Catapres] 0.2 mg PO BID 01/14/16 [Last Taken Unknown] Hydrocodone/Acetaminophen [[place] 5mg/325mg] 1 each PO QID #20 tablet 01/14/16 [ Last Taken Unknown] Magnesium Oxide [Magnesium] 400 mg PO 01/10/18 [Last Taken 01/09/18] Montelukast Sodium [Singulair] 10 mg PO 01/10/18 [Last Taken 01/10/18] Albuterol Sulfate 0.083% [Neb] 3 ml NEB .EVERY 4-6 HOURS PRN 01/11/18 [Last Taken 01/08/18] Discharge Plan - Discharge Instructions Activity at Discharge: As Per Physical Therapy Diet at Discharge: Low Fat, Low Cholesterol, Low Salt Diet Instructions: Leg Edema (ED) Quality Measures - Quality Measures Quality Measures: Advance Directives, Documentation of Current Medications in Medical Record, Elder Maltreatment Screen and Follow-Up Plan, Heart Failure, Screening for High Blood Pressure and F/U Documented - Current Medications Quality Measure: Measure #130: Documentation of Current Medications Documentation of Current Medications: <Current Medications Documented/Reviewed> [G8427] - Blood Pressure Screening Quality Measure: Screening for High Blood Pressure and Follow-Up Documented Does Patient Have Any of the Following: Active Dx of HTN Blood Pressure Classification: Hypertensive Reading Systolic Measurement: 143 Diastolic Measurement: 78 Screening for High Blood Pressure: Patient Exclusion, Hx of HTN [G9744] - Heart Failure (DENICE/ARB Therapy) Quality Measure: Heart Failure Left Ventricular Systolic Function: Unknown DENICE Inhibitor or ARB Therapy for LVSD: Not Eligible - Heart Failure (Beta-allie Therapy) Quality Measure: Heart Failure Left Ventricular Systolic Function: Unknown Beta-Allie Therapy for LVEF < 40%: Not Eligible - Advance Directives Quality Measure: Measure #47: Care Plan Advance Directives Established: No Advance Directives Information Provided To Patient: No Advance Directives on File: No Living Will: No Power of Leases And Land Supervisor: Yes Power of Leases And Land Supervisor Name: 2 sons Advance Care Planning: <Care Plan/Decision Maker Not Decided; Discussed & Documented> [[id number]] - Elder Abuse Suspicion Index Screening: Elder Abuse Suspicion Index Screening Rely on people for bathing, dressing, shopping, banking, etc: No Prevented from getting food, clothes, medication, etc: No Made to feel shamed or threatened by someone: No Forced to sign papers or use money against will: No Feel afraid, touched in ways not wanted or hurt physically: No Poor eye contact, withdrawn, malnourished, cuts or bruises: No Screening Result: Negative result EASI Reference Information: Domingo PAYNE, Agustina C, Ramila Tillman, Carol Ferrell.Development and validation of a tool to assist physicians identification of elder abuse: The Elder Abuse Suspicion Index (EASI ). Journal of Elder Abuse and Neglect, 2008; 20 (3): 276-300. - Elder Maltreatment Screen Quality Measures: Elder Maltreatment Screen and Follow-Up Plan Elder Maltreatment Screen: <Negative, No Follow-Up Plan Required> [G8734]
== END 2018-01-11 19:15 | disposition short-term general hospital (02) ==
LOC: ER 12:34 → MEDSURG 16:44
PROVIDERS: ADMIT Internal Medicine; ATTEND Internal Medicine
DX: I50.9 Heart failure, unspecified (principal); L03.116 Cellulitis of left lower limb; L03.115 Cellulitis of right lower limb; R06.00 Dyspnea, unspecified; J44.9 Chronic obstructive pulmonary disease, unspecified; I10 Essential (primary) hypertension; E11.9 Type 2 diabetes mellitus without complications; Z79.4 Long term (current) use of insulin; I25.2 Old myocardial infarction; I71.4 Abdominal aortic aneurysm, without rupture; M19.90 Unspecified osteoarthritis, unspecified site; F17.210 Nicotine dependence, cigarettes, uncomplicated; Z86.14 Personal history of Methicillin resistant Staphylococcus aureus infection
CPT/HCPCS: 36416; 71046; 80048; 80053; 81003; 82550; 82553; 82948; 83880; 84484; 85027; 86140; 93005; 93010; 94640; 94760; 94761; 96365; 96366; 96374; 99220; 99285; J1940; J7613